=== PATIENT | male | born 1960 | race Caucasian/White ===

== ENCOUNTER 2017-03-18 15:49 | Emergency (ER) | payer BC ==
--- NOTE | ~2017-03-18 | CT23 ---
[facility] A Service of [facility] RADIOLOGY TEXT RESULTS PATIENT: ISMAEL CHIRINOS LOCATION: [facility] : 60 UNIT #: [id number] AGE: [address]: Claudia Murillo SEX: M ORDER DR: [id number] [facility] [address] [place], [place] [address] [id number] E MR#: [id number] Acc #: [id number] NAME: ISMAEL CHIRINOS : 1960 SEX: M STUDY DATE/TIME: 03/18/2017 17:46 UNIT: [facility] ROOM: STUDY DESCRIPTION: CT Angio Neck Attending Physician: Claudia Murillo P.A.-C. Ordering Physician: Claudia Murillo P.A.-C. Primary Care Physician: No Primary Care Physician MEDICAL IMAGING REPORT This report is preliminary unless electronic signature is present EXAM CT angiogram neck with IV contrast. HISTORY Right-sided neck pain today. No injury. TECHNIQUE IV contrast enhanced CT angiogram of the neck was performed with 3-D reconstructions. This CT exam was performed with one or more of the following radiation dose reduction techniques: automatic exposure control, adjustment of mA and/or kV according to patient size, and iterative reconstruction. FINDINGS The common carotid arteries and carotid bulbs and cervical internal carotid arteries are widely patent bilaterally with 0% stenosis by NASCET criteria. Both vertebral arteries are patent with no focal stenosis. Mild calcified plaque in the intracranial internal carotid arteries, but no significant associated stenosis. IMPRESSION Negative CT angiogram neck. No cervical carotid artery stenosis. Both vertebral arteries are widely patent. Dictated by... Glynn Prasad M.D. THIS IS AN ELECTRONICALLY VERIFIED REPORT Glynn Prasad M.D. at 03/19/2017 11:20 PM MANFRED/cesia [facility] A Service of [facility] RADIOLOGY TEXT RESULTS PATIENT: ISMAEL CHIRINOS LOCATION: [facility] : 60 UNIT #: [id number] AGE: [address]: Claudia Murillo SEX: M ORDER DR: TD: 03/18/2017 22:01 JOB #: [id number] MEDICAL IMAGING REPORT Page 1 of 1 COPY
[~2017-03-18 15:49] MED LIST: AMARYL PO; ASPIRIN PO; COREG PO; COUMADIN5 MG PO; GLUCOPHAGE500 M1 PO; LIPITOR PO; LIPITOR20 MG PO; LISINOPRIL PO; METFORMIN PO
[2017-03-18 17:04] LABS: BASOPHIL# 0.1 X10e3 (0-0.3); EOSINOPHIL# 0.4 X10e3 (0-0.7); EOSINOPHIL% 6.6 % (0.0-7.0); HEMATOCRIT 46.9 % (38.0-50.0); HEMOGLOBIN 15.7 gm/dL (13.0-16.0); LYMPHOCYTE# 2.1 X10e3 (1.0-3.5); LYMPHOCYTE% 30.8 % (17.0-45.0); MEAN CELL VOLUME 95.7 FL (83-96); MEAN CORPUSCULAR HEMOGLOBIN 32.1 PG (28-34); MEAN CORPUSCULAR HGB CONC 33.5 g/dL (30-36); MONOCYTE# 0.6 X10e3 (0-1.0); NEUTROPHIL# 3.5 X10e3 (1.5-7.1); NEUTROPHIL% 52.6 % (40-75); PLATELET COUNT 228 X10e3 (140-420); RED CELL DISTRIBUTION WIDTH 13.3 % (11.0-15.5); WHITE BLOOD COUNT 6.7 X10e3 (4.0-10.5)
[2017-03-18 17:05] LABS: DIFF IND NO
[2017-03-18 17:23] LABS: CALCIUM SERUM 9.2 mg/dL (8.4-10.2); GLOM FILT RATE Estimated 83.8 mL/min (>60); POTASSIUM 4.1 mmol/L (3.5-5.1)
== END 2017-03-18 19:15 | disposition home or self-care (01) ==
LOC: CED 15:49 → CFTX 15:49
PROVIDERS: Physician Assistant
DX: M54.2 Cervicalgia (principal); E11.9 Type 2 diabetes mellitus without complications; E78.5 Hyperlipidemia, unspecified; I10 Essential (primary) hypertension; Z86.718 Personal history of other venous thrombosis and embolism; Z87.891 Personal history of nicotine dependence
CPT/HCPCS: 36415; 70498; 80048; 85025; 99284; Q9967